=== PATIENT | male | born 1980 | race Two or more races ===

== ENCOUNTER 2016-09-13 07:53 | Day surgery (SDC) | payer OTHER ==
[~2016-09-13] VITALS: Ht 167.6 cm; Wt 86.2 kg
[2016-09-13] VITALS (8 sets, daily range): BP systolic 111–139; BP diastolic 60–73
[2016-09-13] MEDS ORDERED: LR 1000ml ONE (09:30)
[2016-09-13] MEDS ORDERED: Lidocaine 1% MPF 10mg/ml 5ml ONE (09:30)
[2016-09-13] MEDS ORDERED: Propofol 10mg/ml 20ml IV ONE (09:30)
--- NOTE | 2016-09-13 09:41 | Anethesia Preoperative Eval ---
Anesthesia Pre-op PMH/ROS General Date of Evaluation: September 13, 2016 Anesthesiologist: Kirt ASA Score: ASA 2 Mallampati Score Class I : Soft palate, uvula, fauces, pillars visible Class II: Soft palate, uvula, fauces visible Class III: Soft palate, base of uvula visible Class IV: Only hard plate visible Mallampati Classification: Class II Surgeon: Pablo Diagnosis: GERD Surgical Procedure: EGD and screning Anesthesia History: none Family History: no anesthesia problems Allergies: Coded Allergies: No Known Allergies (Unverified , 09/13/16) Medications: see eMAR Past Medical History Cardiovascular: Denies: CAD, HTN, ID, arrhythmia, other, valve dz Pulmonary: Denies: COPD, BHAVANA, asthma, other Gastrointestinal/Genitourinary: Reports: GERD, Denies: CRI, ESRD, other Neurologic/Psychiatric: Denies: CVA, TIA, dementia, depression/anxiety, other Endocrine: Denies: DM, hypothyroidism, other, steroids HEENT: Denies: KAKTOVIK (L), KAKTOVIK (R), cataract (L), cataract (R), glaucoma, other Hematology/Immune: Denies: DVT, anemia, bleeding disorder, other Musculoskeletal/Integumentary: Denies: DDD, DJD, OA, RA, edema, other PSxH Narrative: ankle surgery Anesthesia Pre-op Phys. Exam Physician Exam Last Vital Signs Date Time Temp Pulse Resp B/P Pulse Ox O2 Delivery O2 Flow Rate FiO2 09/13/16 08:25 98.1 62 18 115/70 98 Room Air Constitutional: NAD Cardiovascular: RRR Respiratory: CTA Airway Exam Mallampati Score: Class II MO: full ROM: full Teeth: intact Anesthesia Pre-op A/P Labs se chart Studies Pre-op Studies: EKG - sr Risk Assessment & Plan Assessment: ASA II Plan: MAC Status Change Before Surgery: No Pre-Antibiotics Drug: N/A CAESAR POOLE M.D. September 13, 2016 09:41
--- NOTE | 2016-09-13 09:42 | Short Stay Surgery H&P ---
History of Present Illness History of Present Illness Chief Complaint Abdominal pains and GERDs symptoms. ZOYA Monroe is a 35 year old male who was admitted on for Abdominal Pain Patient History Allergies: Coded Allergies: No Known Allergies (Unverified , 09/13/16) PAST MEDICAL HISTORY: Past Surgeries: (1) S/P surgical manipulation of ankle joint Social History: Review of Systems Cardiovascular: Reports: no symptoms Respiratory: Reports: no symptoms Skeletal: Reports: spinal disc disease Gastrointestinal: Reports: gastro esophageal reflux disease Genitourinary: Reports: no symptoms Neurologic: Reports: no symptoms Endocrine: Reports: no symptoms Physical Exam Vital Signs Last Vital Signs Date Time Temp Pulse Resp B/P Pulse Ox O2 Delivery O2 Flow Rate FiO2 09/13/16 08:25 98.1 62 18 115/70 98 Room Air Skin: normal HENT: normal Heart: normal Lungs: normal Abdomen: abnormal Extremities: normal Genitourinary: normal Plan Plan of Care Upper and lower GI endoscopies. Preop Interventions None. Summary of Findings See the reports. Final Diagnosis: Attestation Are the patient's medical conditions optimized for surgery? Attestation Response: yes CAMILA DHILLON September 13, 2016 09:42
--- NOTE | 2016-09-13 09:43 | Pre-Procedure Note/Attestation ---
Pre-Procedure Note/Attestation Complete Prior to Procedure Planned Procedure: left Procedure Narrative: Endoscopic examination of the upper and lower GI tract. Indications for Procedure Pre-Operative Diagnosis: R/O Peptic ulcer/colitis. Attestation I attest that I discussed the nature of the procedure; its benefits; risks and complications; and alternatives (and the risks and benefits of such alternatives ), prior to the procedure, with the patient (or the patient's legal commercial representative). I attest that, if there was a reasonable possibility of needing a blood transfusion, the patient (or the patient's legal commercial representative) was given the [facility] standardized written summary, pursuant to the Shaka Yudy Blood Safety Act ([place] Health and Safety Code # 1645, as amended). I attest that I re-evaluated the patient just prior to the surgery and that there has been no change in the patient's H&P, except as documented below: JACQUIE,SAID September 13, 2016 09:43
[2016-09-13] MEDS ORDERED: LR 1000ml 1,000 ML IVLG SCH (09:48)
[2016-09-13] MEDS ORDERED: DiphenhydrAMINE 50mg/ml Inj IVP PRN (10:00)
--- NOTE | 2016-09-13 10:10 | Endoscopy Procedure Note ---
Endoscopy Procedure Note Indication for Procedure: Abdominal pains/GERDS Procedures Performed: EGD - Mild gastritis otherwise completely normal UGI endoscopy,. Biopsies were done from different parts of the stomach., colonoscopy - Completely normal total Colonoscopy. Specimen: yes Pt Tolerated Procedure Well: Yes Anesthesiologist: Dr. Moralez Medication Given: see anesthesia record Implant(s) used?: No 50 yrs or older w/o bx or poly: No 10yrs. F/U not recommended: No 10 yrs. F/U needed: No 18 years or older w/prev. colo: No <3yrs. since last colonoscopy: No Med reason:<3 yrs.: System Reason:<3 yrs.: CAMILA DHILLON September 13, 2016 10:10
--- NOTE | 2016-09-13 10:11 | Discharge Instructions ---
Discharge Instructions Discharge Instructions Follow up with: Visit the doctor after two weeks in the office. For Congestive Heart Failure Reminder Report to your physician any weight gain of 5 pounds or more in one week. CAMILA DHILLON September 13, 2016 10:11
--- NOTE | 2016-09-13 10:25 | Immediate Post-Op Evaluation ---
Immediate Post-Op Evalulation Immediate Post-Op Evalulation Procedure: EGD and colonoscopy Date of Evaluation: September 13, 2016 Time of Evaluation: 10:26 IV Fluids: 600 Blood Products: 0 Estimated Blood Loss: 0 Urinary Output: 0 Blood Pressure Systolic: 139 Blood Pressure Diastolic: 73 Pulse Rate: 66 Respiratory Rate: 16 O2 Sat by Pulse Oximetry: 100 Temperature (Fahrenheit): 97.3 Pain Score (1-10): 0 Nausea: No Vomiting: No Complications 0 Patient Status: awake, reacts, patent, none Hydration Status: adequate Drug: N/A CAESAR POOLE M.D. September 13, 2016 10:25
--- NOTE | 2016-09-13 13:37 | 48 Hour Post Anesthesia Eval ---
Post Anesthesia Evaluation Procedure: EGD and colonoscopy Date of Evaluation: September 13, 2016 Time of Evaluation: 13:30 Blood Pressure Systolic: 132 0: 72 Pulse Rate: 58 Respiratory Rate: 16 Temperature (Fahrenheit): 97.3 O2 Sat by Pulse Oximetry: 100 Airway: patent Nausea: No Vomiting: No Pain Intensity: 0 Hydration Status: adequate Cardiopulmonary Status: at baseline Mental Status/LOC: patient returned to baseline Post-Anesthesia Complications: 0 Follow-up care needed: ready to discharge CAESAR POOLE M.D. September 13, 2016 13:37
--- NOTE | 2016-09-13 17:17 | Operative Note - Dictated ---
DATE OF OPERATION: 09/13/2016 Referred by Law Officer [facility]. PROCEDURE: Total colonoscopy. PREOPERATIVE DIAGNOSIS: Abdominal pain. POSTOPERATIVE DIAGNOSIS: Completely normal total colonoscopy. MEDICATION USED: Per Dr. Moralez. INSTRUMENT: GIF Olympus videocolonoscope. DESCRIPTION OF PROCEDURE: The patient after arriving endoscopy unit, was told about risks and benefits of the procedure, which she accepted and signed the informed consent. At this time, he was put on the left lateral decubitus position. After adequate IV sedation, scope was gently passed through the anal area, which did not reveal any pathology. No evidence of major hemorrhoids. The retroflexion maneuver was applied here which revealed evidence of no rectal pathology either. Finally, scope was passed through somewhat redundant left colon reaching towards the splenic flexure, transverse colon, hepatic flexure, and guided into the right colon all the way to the base of the cecum. At this point, the appendiceal opening was seen and the scope was advanced into terminal ileum, which also looked normal. Finally within 6 minutes the scope was gradually pulled out and re-evaluation of the colon did not reveal any pathology. The colon cleanup was adequate. The patient tolerated the procedure well and left the endoscopy room in good condition. Said Jaki Shah DR: Kennedi JOB#: [id number] CC:
--- NOTE | 2016-09-13 17:45 | Operative Note - Dictated ---
DATE OF OPERATION: 09/13/2016 PROCEDURE: Esophagogastroduodenoscopy with biopsy. This patient was referred by the [facility]. PREOPERATIVE DIAGNOSES: Abdominal pain and history of gastroesophageal reflux and taking NSAIDs medications, rule out peptic ulcer disease. POSTOPERATIVE DIAGNOSIS: Mild generalized gastritis, otherwise normal study. Biopsy taken from different parts of the gastric cavity. MEDICATIONS USED: Per Dr. Moralez. INSTRUMENT: GIF Olympus upper gastrointestinal video endoscope. DESCRIPTION OF PROCEDURE: The patient after arriving in the endoscopy unit, was told about risks and benefits of the procedure, which he accepted and signed the informed consent. He was then put on the left lateral decubitus position. After adequate IV sedation, the scope was gently passed through the cricopharyngeal area, was lodged into the upper esophagus, gradually advanced towards gastroesophageal junction. The entire length of the esophagus looked normal. GE junction also looked normal without any evidence of hiatal hernia or Nolasco's. At this time, the scope was advanced into the stomach. Gastric cavity was distended. Gradually the areas of the fundus and the body and the antrum were examined, which revealed evidence of minimal inflammatory process mostly in the fundus of the stomach over the greater curvature and all areas of the gastric body, which were biopsied. However, there was no any evidence of ulcers, erosions, bleeding, tumors or polyps etc. Finally, the scope was passed through the antrum and introduced into the normal looking pylorus. First and second portion of duodenum were found to be completely normal. At this time, the scope was pulled out and the procedure was terminated. The patient tolerated the procedure well. Said Jaki Shah DR: DAVID JOB#: [id number] CC:
--- NOTE | 2016-09-13 18:16 | Pre-op HX & Phy Repo 2 SIG ---
DATE OF ADMISSION: 09/13/2016 HISTORY: This patient was referred by [facility] of [employer]. The applicant is a 35-year-old gentleman who is being seen prior to undergoing the procedures of upper and lower GI endoscopy for which he has been scheduled to receive for full evaluation of his gastrointestinal symptoms that he has been complaining subsequent to his work injury. The applicant basically complaining of generalized abdominal pain allover the abdomen, but mostly located over the epigastric area associated with symptoms of heartburn that he has been experiencing almost for a couple of years. The pain sometimes is moderately severe in nature and occurred after eating food. He also reports that the pain radiates toward his chest area, which is quite cumbersome. As I mentioned, the applicant does have symptoms of gastroesophageal reflux consistent with GERD. However, he has not been adequately treated and never received any treatment for this condition, though he has been treated with nonsteroidal anti-inflammatory agents for a long period of time subsequent to his work injury. He reports that he . The applicant denies any history of difficulty swallowing. No history of hematemesis, melena, or hematochezia. 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 PAST MEDICAL HISTORY: Basically none significant. He denies high blood pressure, high cholesterol, arthritis, etc. PAST SURGICAL HISTORY: Right ankle surgery in 1997. MEDICATIONS: Current medications basically on nonsteroidal anti-inflammatory agents along with analgesics. ALLERGIES: None significant. HABITS: The applicant denies any smoking cigarettes or drinking alcohol or using illegal drugs. FAMILY HISTORY: None significant. REVIEW OF SYSTEMS: Basically, history of present illness. PHYSICAL EXAMINATION: GENERAL: The patient is an alert and oriented gentleman, who does not seem to be in any acute distress. He answers the questions quite properly. He looks well developed and nourished. VITAL SIGNS: All stable. HEENT: Normocephalic. Pupils equal in size and reactive to light and accommodation. No visible jaundice. Buccal cavity, tongue midline, well hydrated. No ulcers. NECK: Supple. No JVD, thyromegaly, or adenopathy. CHEST: Clear to auscultation and percussion. No rales or rhonchi. HEART: S1 and S2 normal. Regular rhythm. No gallops or murmur. ABDOMEN: Soft, but is tender over the upper part of the abdomen and there are areas of tenderness over the lower part, especially left lower quadrant as well. There is no palpable mass. No organomegaly. EXTREMITIES: Unremarkable. PRELIMINARY IMPRESSION: 1. Abdominal pain of uncertain etiology, rule out gastroesophageal reflux, rule out nonsteroidal anti-inflammatory drug-induced gastropathy, peptic ulcer disease, gastritis. 2. Generalized abdominal pain, rule out nonsteroidal anti-inflammatory drug-induced colitis versus irritable bowel syndrome, aggravated by anxiety and stress medication used for the treatment of bottling injury at work. The applicant at this time seems to be stable to undergo the procedures of upper and lower GI endoscopy and he accepted the risks and benefits and signed the consent. Said Jaki Shah DR: DAVID JOB#: [id number] CC:
== END 2016-09-13 12:05 | disposition home or self-care (01) ==
LOC: GAS 07:53
DX: R10.84 Generalized abdominal pain (principal); K21.9 Gastro-esophageal reflux disease without esophagitis; K29.50 Unspecified chronic gastritis without bleeding; B96.81 Helicobacter pylori [H. pylori] as the cause of diseases classified elsewhere; Z79.1 Long term (current) use of non-steroidal anti-inflammatories (NSAID)
CPT/HCPCS: 43239; 45378; J2704; J7120; 94003; 94150